=== PATIENT | male | born 1950 | race Caucasian/White ===

== ENCOUNTER 2020-07-24 08:11 | Outpatient (RCR) | payer MEDICARE, SELFPAY | END 2020-08-12 13:26 | disposition home or self-care (01) | LOC: HO.WCC 08:11 | PROVIDERS: PCP Internal Medicine; Visit Provider Surgery | DX: E11.621 Type 2 diabetes mellitus with foot ulcer (principal); E11.22 Type 2 diabetes mellitus with diabetic chronic kidney disease; L97.423 Non-pressure chronic ulcer of left heel and midfoot with necrosis of muscle; I13.0 Hypertensive heart and chronic kidney disease with heart failure and stage 1 through stage 4 chronic kidney disease, or unspecified chronic kidney disease; N18.30 Chronic kidney disease, stage 3 unspecified; I50.9 Heart failure, unspecified; E66.9 Obesity, unspecified | CPT/HCPCS: 11043; 11046; 87071; 87205; 99203 ==